=== PATIENT | female | born 1965 | race Two or more races ===

== ENCOUNTER 2022-10-27 14:01 | Emergency (ER) | payer OTHER ==
[~2022-10-27] VITALS: Ht 157.5 cm; Wt 91.0 kg
[2022-10-27] MEDS ORDERED: MORPHINE SULFATE INJ 2 MG/ml SYRG IM ONE (19:15)
[2022-10-27] MEDS ORDERED: ONDANSETRON ODT 4 MG TAB PO ONE (19:15)
[2022-10-27 19:33] VITALS: TEMP 98; O2SAT 98
[2022-10-27 21:06] LABS: Basophils # (auto) 0 10 ^3/uL (0-0.2); Basophils % (auto) 0.7 % (0.0-2.0); Eosinophils # (auto) 0.1 10 ^3/uL (0-0.8); Eosinophils % (auto) 1.8 % (0.0-7.0); Hematocrit 43.4 % (36.0-46.0); Hemoglobin 14.8 g/dL (12.2-16.2); Lymphocytes # (auto) 1.2 10 ^3/uL (0.4-5.4); Lymphocytes % (auto) 19.2 % (10.0-50.0); Mean Corpuscular Hemoglobin 30.1 pg (28.0-32.0); Mean Corpuscular Hgb Conc. 34.1 g/dL (32.0-36.0); Mean Corpuscular Volume 88.2 fL (80.0-100.0); Monocytes # (auto) 0.5 10 ^3/uL (0-1.3); Monocytes % (auto) 8.2 % (0.0-12.0); Neutrophils # (auto) 4.5 10 ^3/uL (1.6-8.6); Neutrophils % (auto) 70.1 % (37.0-80.0); Red Blood Cells 4.92 10^6/uL (4.0-5.20); Red Cell Distribution Width 14.2 % (11.8-14.3); White Blood Cell 6.4 10^3/uL (4.4-10.8)
[2022-10-27 21:26] LABS: Alanine Aminotransferase 27 U/L (7-40); Albumin 5.1 g/dL (3.2-4.8); Alkaline Phosphatase 120 U/L (46-116); Anion Gap 7 (5-15); Aspartate Aminotransferase 24 U/L (13-40); BUN/Creatinine Ratio 14.5 (10.0-20.0); Bilirubin, Total 0.4 mg/dL (0.2-1.0); Blood Urea Nitrogen 10 mg/dL (9-23); Calcium 9.4 mg/dL (8.7-10.4); Carbon Dioxide 23 mmol/L (20-30); Chloride 108 mmol/L (98-107); Glucose 112 mg/dL (74-106); Potassium 3.9 mmol/L (3.5-5.1); Sodium 138 mmol/L (136-145)
[2022-10-27] MEDS ORDERED: CYCL-837 PO (21:50)
[2022-10-27] MEDS ORDERED: ACE3T PO (21:50)
[2022-10-27 21:55] VITALS: BP 127/78; PULSE 72; RESP 18
== END 2022-10-27 21:53 | disposition home or self-care (01) ==
LOC: EDBD 14:01 → ER 14:01
DX: S46.911A Strain of unspecified muscle, fascia and tendon at shoulder and upper arm level, right arm, initial encounter (principal); S16.1XXA Strain of muscle, fascia and tendon at neck level, initial encounter; S20.219A Contusion of unspecified front wall of thorax, initial encounter; S30.1XXA Contusion of abdominal wall, initial encounter; R51.9 Headache, unspecified; V43.52XA Car driver injured in collision with other type car in traffic accident, initial encounter; Y93.89 Activity, other specified; Y92.410 Unspecified street and highway as the place of occurrence of the external cause; Y99.8 Other external cause status
CPT/HCPCS: 36415; 70450; 71250; 72070; 72125; 73030; 74176; 80053; 84484; 85025; 93005; 96372; 99285; J2270; Q0162